=== PATIENT | female | born 1970 | race Caucasian/White ===

== ENCOUNTER 2017-07-04 11:03 | Day surgery (SDC) | payer MEDICAID, OTHER ==
[~2017-07-04] VITALS: Ht 170.2 cm; Wt 87.4 kg
[2017-07-04] VITALS (10 sets, daily range): BP systolic 113–139; BP diastolic 63–77; PULSE 64–85; RESP 13–18; Ht 170.2 cm; Wt 87.4 kg
[~2017-07-04 11:03] MED LIST: CEFAZOLIN 1 GM INJ ONE
[2017-07-04] MEDS ORDERED: SOD CHLORIDE 0.9% 1,000 ML IV ONE (11:30)
[2017-07-04] MEDS ORDERED: CEFAZOLIN 2 GM/50 ML (PMX) 50 ML IVPB ONE (11:30)
[2017-07-04] MEDS ORDERED: DAPA5TAB PO (11:35)
[2017-07-04] MEDS ORDERED: LOSA25TA5 PO (11:35)
[2017-07-04] MEDS ORDERED: METF1000 PO (11:35)
[2017-07-04] MEDS ORDERED: ATOR20TA38 PO (11:36)
[2017-07-04] MEDS ORDERED: BUPIVACAINE 0.5%/EPI (SDV) 30 ML INJ ONE (13:16)
--- NOTE | 2017-07-04 13:20 | HPN ---
Date/Time of Note Date/Time of Note DATE: 07/04/17 TIME: 13:19 Interval H&P Admission Note Pt. seen H&P reviewed: No system changes KENAN ORTA MD Jul 04, 2017 13:20
[2017-07-04] MEDS ORDERED: KETOROLAC 30 MG INJ ONE (13:27)
[2017-07-04] MEDS ORDERED: ONDANSETRON 4 MG INJ ONE (13:27)
[2017-07-04] MEDS ORDERED: LIDOCAINE 1% (STERILE-PAK) 30 ML INJ ONE (13:34)
[2017-07-04] MEDS ORDERED: IBUPROFEN 600 MG TAB PO PRN (14:00)
[2017-07-04] MEDS ORDERED: ONDANSETRON 4 MG INJ IV PRN (14:00)
[2017-07-04] MEDS ORDERED: KETOROLAC 30 MG INJ IV PRN (14:00)
--- NOTE | 2017-07-04 14:01 | OPR ---
Date/Time of Note Date/Time of Note DATE: 07/04/17 TIME: 13:57 Operative Report Procedure Date: Jul 04, 2017 Preoperative Diagnosis Left neck mass Postoperative Diagnosis Left neck mass Operation/Procedure Performed Excision of left neck mass Surgeon see signature line Sales Representative Trainee None Anesthesia Type: MAC Anesthesiologist: Brayden Davis M.D. Estimated Blood Loss: minimal Transfusion none Specimen Left neck mass Grafts/Implants none Complications none Pt Condition Post Procedure: stable Disposition: PACU Indications Patient is a 47-year-old female with a history of diabetes who presented to the office with a left neck mass. She had suffered an infection of this and underwent a prior incision and drainage. After resolution of her acute infection she was scheduled for elective mass excision to prevent further recurrent infections, for symptom relief and definitive pathological diagnosis. All risks and benefits of the procedure including, but not limited to: Infection, excessive bleeding, postoperative seroma/hematoma formation, mass recurrence, etc. were all explained to the patient in full detail. She fully understood and wished to proceed with the procedure. Informed consent was obtained. Procedure Description The patient was brought to the operating room and placed in the right lateral decubitus position with her left side up. The mass been preoperatively marked and confirmed with the patient in the holding area. Bilateral sequential compression devices were placed on both lower extremities. A dose of broad- spectrum perioperative intravenous antibiotics was given. After achieving adequate sedation the patient's left neck was prepped and draped in standard surgical fashion. After performance of the surgical timeout 1% percent lidocaine was infiltrated in the area of the mass. An elliptical incision was then made over the mass using a 15 blade scalpel. Incision was carried down through the skin and dermis using sharp dissection. The mass was identified and dissected free of surrounding tissues. It was transected. Appeared consistent with sebaceous cyst. Was passed off the field as specimen. Hemostasis was then inspected for and noted to be adequate. The wound cavity was irrigated with warm saline. The wound was then closed using subcuticular 4- 0 Monocryl sutures. Further local anesthesia was applied around the skin and the incision sites. The skin was then cleaned and Dermabond was applied. The patient was then transferred to recovery in stable condition. All counts were correct at the end of the case 2. KENAN ORTA MD Jul 04, 2017 14:01
== END 2017-07-04 15:15 | disposition home or self-care (01) ==
LOC: SDS 11:03
PROVIDERS: ATTEND Surgery
DX: L72.0 Epidermal cyst (principal); L08.89 Other specified local infections of the skin and subcutaneous tissue
CPT/HCPCS: 11420; 82962; 84703; 88307; J0690; J1885; J2405; J3010